=== PATIENT | female | born 1990 | race Caucasian/White ===

== ENCOUNTER → 2017-11-20 13:01 | Outpatient (CLI) | payer MEDICAID, SELFPAY ==
[2017-11-20 15:42] LABS: Mean Corp. HGB Concentration 32.8 g/dL (32.0-36.0); Mean Corpuscular Hemoglobin 33.7 pg (27.0-33.0); Mean Corpuscular Volume 102.6 fL (80-95); Platelet Count 293 x1000/uL (130-400); RBC Distribution Width 13.1 % (11.7-14.6); White Blood Cell Count 14.47 k/cumm (4.4-10.8)
[2017-11-20 16:00] LABS: HCT 19.5 % (36.0-46.0); HGB 6.4 g/dL (12.0-15.5)
== END ==
PROVIDERS: PCP Family Medicine; Visit Provider Advanced Practice Midwife
DX: D50.8 Other iron deficiency anemias (principal)
CPT/HCPCS: 36415; 85027

== ENCOUNTER → 2017-11-28 14:30 | Outpatient (CLI) | payer MEDICAID, SELFPAY ==
[2017-11-28 15:09] LABS: HCT 25.9 % (36.0-46.0); HGB 8.1 g/dL (12.0-15.5); Mean Corp. HGB Concentration 31.3 g/dL (32.0-36.0); Mean Corpuscular Volume 102.4 fL (80-95); Mean Platelet Volume 9.1 fL (8.0-11.0); Platelet Count 413 x1000/uL (130-400); RBC 2.53 m/cumm (4.00-5.20); RBC Distribution Width 13.9 % (11.7-14.6); White Blood Cell Count 12.36 k/cumm (4.4-10.8)
== END ==
PROVIDERS: PCP Family Medicine; Visit Provider Advanced Practice Midwife
DX: D50.8 Other iron deficiency anemias (principal)
CPT/HCPCS: 36415; 85027

== ENCOUNTER 2018-06-18 11:52 | Outpatient (REF) | payer MEDICAID, SELFPAY ==
--- NOTE | 2018-06-18 10:15 | PAPFT_PTH ---
PATIENT: RADHA BANEGAS LOC: [facility] U#:[id number] AGE/SX: 27/F ROOM: RE06/18/[address]: Lisa Chaudhari RN : 1990 BED: DIS: 06/18/2018 SPEC #: [id number] RECD: 06/18/18 12:50 STATUS: GABRIELE RETroy #: [id number] VIDYA: 06/18/18 10:[address]: Lisa Chaudhari DEPT: [facility] Cytology RECD BY: Vera Shrestha ENTERED: 06/18/18 12:51 SP TYPE: PAPFT [place] DR: Lucretia Tissues: 1 - CX/ENDOCX FOR PAP SMEARS Procedures: PAP THIN PREP/[facility] Screening Comments: [id number]
[2018-06-20 13:35] LABS: Chlamydia Result Negative; GC Result Negative; Specimen Description CERVIX
== END 2018-06-18 12:12 ==
LOC: LBN 11:52
PROVIDERS: Visit Provider Advanced Practice Midwife
DX: Z11.3 Encounter for screening for infections with a predominantly sexual mode of transmission (principal); Z12.4 Encounter for screening for malignant neoplasm of cervix; Z11.51 Encounter for screening for human papillomavirus (HPV)
CPT/HCPCS: 87491; 87591; 88142